=== PATIENT | female | born 1995 | race Caucasian/White ===

== ENCOUNTER → 2021-03-25 | Outpatient (CLI) | payer OTHER ==
--- NOTE | 2021-03-25 16:09 | RAD ---
EXAM: OB ULTRASOUND, > 14 WEEKS HISTORY: Anatomy survey. COMPARISON: None. TECHNIQUE: Multiple grayscale images, color Doppler, and M-mode images of the uterus are obtained. FINDINGS: There is a single intrauterine gestation in breech presentation. The placenta is anterior in location without evidence of placenta previa. The amount of amniotic fluid appears appropriate. Amniotic flu id index is 10.2 cm. Cervical length is 3.7 cm. Biometrical data: BPD = 4.41 cm for 19 weeks 2 days. HC = 16.77 cm for 19 weeks 3 days. AC = 14.87 cm for 20 weeks 1 days. FL = 3.22 cm for 20 weeks 0 days. HC/AC ratio = 1.13. Overall, the estimated sonographic gestational age is 19 weeks and 5 days for an estimated date of de livery of 08/14/2021. The estimated date of delivery provided by the last menstrual period is 08/12/2021. Estimated weight is 326 grams. A 4 chamber heart is identified with positive cardiac activity. The estimated heart rate is 152 beats per minute. The bilateral upper and lower extremities are identified. There is a three-vessel cord with cord insertion visualized. The stomach, kidneys and bladder are unremarkable. The spine and brain are unremarkable. No obvious anatomic abnormalities are identified. The maternal adnexal regions are unremarkable. IMPRESSION: 1. Single intrauterine fetus with normal heart rate and gestational age based on ultrasound measureme nts of 19 weeks and 5 days. 2. Unremarkable anatomy survey. Electronically signed by: Sarah Anderson MD (03/25/2021 4:06 PM) [id number]
== END ==
LOC: US 13:34
PROVIDERS: ATTEND Obstetrics & Gynecology
DX: O32.1XX0 Maternal care for breech presentation, not applicable or unspecified (principal); Z3A.19 19 weeks gestation of pregnancy
CPT/HCPCS: 76805